=== PATIENT | male | born 1940 | race Caucasian/White ===

== ENCOUNTER 2017-08-28 19:18 | Emergency (ER) | payer MEDICARE, OTHER ==
[~2017-08-28] VITALS: Ht 157.5 cm; Wt 69.6 kg
[~2017-08-28 19:18] MED LIST: ATROVENT INH; FLUT1DSK2 IH; MONT10TA35; XOPENEX INH
[2017-08-28 19:21] VITALS: BP 141/75
--- NOTE | 2017-08-28 19:28 | NUR ---
PT AMBULATED TO BED 5. GAVE REPORT TO PRESLEY GRAMAJO
--- NOTE | 2017-08-28 19:30 | NUR ---
C/O SOB. NEEDS REFILL FOR XOPENEX HFA 45MCG 2 PUFFS EVERY 6 HOURS AND ATROVENT 17MCG 2 PUFFS 4 TIMES DAILY. LUNG SOUNDS DIMINISHED THROUGHOUT. PMH: MUTE/DEAF PT REFUSING MONITOR AT THIS TIME, STATES (IN WRITING) THAT HE JUST WANTS HIS REFILLS. PT DENIES N/V/D; SKIN IS INTACT, PINK/WARM/DRY; AAOX4, PERRL, WITH EVEN AND STEADY GAIT; C/O SOB. NEEDS REFILL FOR XOPENEX HFA 45MCG 2 PUFFS EVERY 6 HOURS AND ATROVENT 17MCG 2 PUFFS 4 TIMES DAILY. LUNG SOUNDS DIMINISHED THROUGHOUT. HR EVEN AND REGULAR, BL PERIPHERAL PULSES PRESENT; BS ACTIVE X4, NO TENDERNESS TO PALPATION, NO HEPATOSPLENOMEGALLY PALPATED, RESONANT TO PERCUSSION; PT DENIES ANY FEVER, CP, OR COUGH AT THIS TIME; PT STATES 0/10 PAIN AT THIS TIME; VSS; PATIENT POSITIONED FOR COMFORT; HOB ELEVATED; BEDRAILS UP X2; BED DOWN.
--- NOTE | 2017-08-28 20:06 | NUR ---
Patient discharged with v/s stable. Written and verbal after care instructions given and explained. Patient alert, oriented and verbalized understanding of instructions. Ambulatory with steady gait. All questions addressed prior to discharge. ID band removed. Patient advised to follow up with PMD. Rx of PREDNISONE, XOPENEX HFA, ATROVENT HFA given. Patient educated on indication of medication including possible reaction and side effects. Opportunity to ask questions provided and answered.
[2017-08-28 20:08] VITALS: BP 138/71
== END 2017-08-28 20:06 | disposition home or self-care (01) ==
LOC: MED 19:18
DX: J44.9 Chronic obstructive pulmonary disease, unspecified (principal); Z76.0 Encounter for issue of repeat prescription; Z79.899 Other long term (current) drug therapy; Z91.013 Allergy to seafood
CPT/HCPCS: 99283

== ENCOUNTER 2018-08-21 20:27 | Emergency (ER) | payer MEDICARE, OTHER ==
[~2018-08-21] VITALS: Ht 167.6 cm; Wt 69.6 kg
[2018-08-21 20:35] VITALS: BP 139/89
--- NOTE | 2018-08-21 20:38 | NUR ---
TO LOBBY A/W BED, AMBULATORY
--- NOTE | 2018-08-21 21:02 | NUR ---
Dr. Soto examining patient.
--- NOTE | 2018-08-21 21:02 | NUR ---
78 Y/O MALE PRESENTS TO ED WITH C/O OF MEDICATION REFILL FOR ORAL INHALERS. VSS. ER MD AWARE. CONTINUE TO MONITOR. NO OTHER C/O AT THIS TIME.
[2018-08-21 21:18] VITALS: BP 139/89
--- NOTE | 2018-08-21 21:18 | NUR ---
Patient discharged with v/s stable. Written and verbal after care instructions given and explained. Patient alert, oriented and verbalized understanding of instructions. Ambulatory with steady gait. All questions addressed prior to discharge. ID band removed. Patient advised to follow up with PMD. Rx of Atrovent and Levalbuterol given. Patient educated on indication of medication including possible reaction and side effects. Opportunity to ask questions provided and answered.
== END 2018-08-21 21:18 | disposition home or self-care (01) ==
LOC: MED 20:27
DX: J44.9 Chronic obstructive pulmonary disease, unspecified (principal); Z76.0 Encounter for issue of repeat prescription; Z79.899 Other long term (current) drug therapy
CPT/HCPCS: 99283

== ENCOUNTER 2019-07-26 21:07 | Emergency (ER) | payer MEDICARE, OTHER ==
[~2019-07-26] VITALS: Ht 167.6 cm; Wt 60.3 kg
[2019-07-26 21:16] VITALS: BP 123/81
[2019-07-26] MEDS: DEXAMETHASONE 10 MG/ML VIAL PO ONE (21:55)
[2019-07-26] MEDS: LEVALBUTEROL 1.25 MG/0.5 ML NEBU INH ONE (22:09)
[2019-07-26] MEDS: IPRATROPIUM 0.02% 0.5 MG/2.5 ML NEBU INH ONE (22:09)
[2019-07-26 22:10] VITALS: BP 123/81
== END 2019-07-26 22:11 | disposition home or self-care (01) ==
LOC: MED 21:07
DX: J44.1 Chronic obstructive pulmonary disease with (acute) exacerbation (principal); J45.909 Unspecified asthma, uncomplicated; H91.3 Deaf nonspeaking, not elsewhere classified; Z76.0 Encounter for issue of repeat prescription; Z79.899 Other long term (current) drug therapy
CPT/HCPCS: 71045; 99284; J1100; J7612; J7644; Q0092; 94664